=== PATIENT | female | born 1945 | race Caucasian/White ===

== ENCOUNTER 2021-08-01 11:04 | Emergency (ER) | payer MEDICARE, OTHER ==
[~2021-08-01] VITALS: Ht 170.2 cm; Wt 76.7 kg
[~2021-08-01 11:04] MED LIST: ARMOUR THYROID30 M1; ARMOUR THYROID60 M1; ARMOUR THYROID60 M1 PO; ARMOUR THYROID90 M1 PO; BILBERRY1 EAC1 PO; LUTEIN20 MG PO; MAGNES; MINIPRIN81 MG; MULTIVITAMINS; POTASSIUM; PURE TAURINE500 MG; VITAMIN D400 UNI1 PO; ZIAC
[2021-08-01] MEDS ORDERED: CEPHALEXIN500 MG PO (12:49)
[2021-08-01 13:04] VITALS: BP 144/60
== END 2021-08-01 13:04 | disposition home or self-care (01) ==
LOC: M.ERS 11:04
DX: S61.216A Laceration without foreign body of right little finger without damage to nail, initial encounter (principal); L03.113 Cellulitis of right upper limb; Z90.711 Acquired absence of uterus with remaining cervical stump; Z90.49 Acquired absence of other specified parts of digestive tract; Z98.890 Other specified postprocedural states; Z79.899 Other long term (current) drug therapy; Z79.82 Long term (current) use of aspirin; Z88.5 Allergy status to narcotic agent; Z88.2 Allergy status to sulfonamides; Z91.012 Allergy to eggs; Z88.6 Allergy status to analgesic agent; Z91.010 Allergy to peanuts; W23.0XXA Caught, crushed, jammed, or pinched between moving objects, initial encounter; Y93.89 Activity, other specified; Y92.89 Other specified places as the place of occurrence of the external cause; Y99.8 Other external cause status